=== PATIENT | female | born 1970 | race Caucasian/White ===

== ENCOUNTER → 2016-04-12 | Outpatient (CLI) | payer BC ==
[~2016-04-12] MED LIST: ACIDOPHILUS1 EAC4 PO; ADVIL200 MG PO; ASPIR-TRIN325 MG PO; ASPIRIN325 MG PO; NORCO 5-325 TA1 EACH PO; PERCOCET 5-3251 EACH PO; PROBIOTIC1 EAC1 PO; TYLENOL EXTRA500 MG PO; VITAMIN B-12500 MCG PO; VITAMIN B12-FO1 EACH PO; XARELTO15 MG PO
== END | disposition disaster alternative care site (69) ==
LOC: GCAR 10:42
DX: M25.571 Pain in right ankle and joints of right foot (principal); M79.661 Pain in right lower leg; M79.89 Other specified soft tissue disorders

== ENCOUNTER → 2016-07-11 | Day surgery (SDC) | payer BC ==
[~2016-07-11] VITALS: Ht 170.2 cm; Wt 122.4 kg
--- NOTE | ~2016-07-11 | OR ---
PATIENT'S NAME: JASPREET THOMAS [facility] AGE: 45 Y [address] ROOM: [place] [address] [place]: [facility] [place] ADMIT DATE: 07/11/2016 OR/Procedure Report DISCHARGE DATE: FAMILY PHYSICIAN: Rafa Lagos ATTENDING PHYSICIAN: JANI MARTÍNEZ SURGEON: Jani Martínez MD INSTALLATION DRAFTER: Martin Das PA-C. DATE OF PROCEDURE: 07/11/2016 PREOPERATIVE DIAGNOSIS: Left knee mechanical symptoms with medial meniscus tear in the setting of previous tibial plateau fracture and underwent open reduction and internal fixation in the past. POSTOPERATIVE DIAGNOSES: Left medial and lateral meniscus tears and loose body. PROCEDURES PERFORMED: 1. Left knee arthroscopy. 2. Partial medial and lateral meniscectomies with extensive debridement of hypertrophic fat pad and synovitis, chondroplasty in medial, lateral, and patellofemoral compartments. 3. Removal of loose body in lateral gutter. ANESTHESIA: General endotracheal anesthesia. FLUIDS: See anesthesia report. ESTIMATED BLOOD LOSS: Minimal. TOURNIQUET: Left proximal thigh at 300 mmHg. SPECIMEN: None. COMPLICATIONS: None. DISPOSITION: Stable in PACU. COUNT: All counts correct. INDICATIONS: Ms. Thomas is a pleasant 45-year-old, female, who underwent the noted procedures above. The risks, benefits, and alternatives pursuing a surgical intervention were discussed the patient in detail. I marked the patient's left lower extremity indicating the correct surgical site. Anesthesia was consulted for their perioperative evaluation of the patient. PATIENT'S NAME: JASPREET THOMAS [facility] AGE: 45 Y [address] ROOM: [place] [address] LOC[place]: [facility] [place] ADMIT DATE: 07/11/2016 OR/Procedure Report DISCHARGE DATE: FAMILY PHYSICIAN: Rafa Lagos ATTENDING PHYSICIAN: JANI MARTÍNEZ DESCRIPTION OF PROCEDURE: The patient was taken from the holding room to the operating room. A time-out was performed. General endotracheal anesthesia was administered. Ancef antibiotic was administered for perioperative prophylaxis. This was a latex-free room. The left lower extremity then prepped and draped in a sterile fashion. I turned my attention to the left knee. An Esmarch was used to exsanguinate the limb. The tourniquet inflated to 250 mmHg. I began within a lateral parapatellar portal. I introduced my camera and performed a diagnostic arthroscopy. Notably, there were advanced degenerative changes, especially in the medial patellofemoral compartments. There was a large loose body noted in the lateral gutter. The ACL and PCL were intact. There was extensive synovitis and hypertrophic fat pad. I introduced a medial parapatellar portal from my shaver. I performed an extensive synovectomy and debridement of hypertrophic fat pad in the anterior aspect of the knee. Notably, the knee been previously traumatized from the lateral tibial plateau fracture. Using arthroscopic biter identified and imaged the loose body in the lateral gutter. I subsequently removed it. The chondroplasty was performed effectively in all 3 compartments, but mostly in the medial patellofemoral compartments. 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 There are degenerative changes were grade 3 at the medial compartment and grade 3/4 in the patellofemoral compartments. All the fluid was then aspirated from the joint. The wound was closed with the arthroscopic portal stitches using a 2-0 nylon suture. Sterile dressings were placed in the form of Xeroform, followed by 4x4, Webril, and Michael wrap from the toes up to the proximal thigh. The tourniquet was let down. The patient was then transferred to operating table onto the stretcher and extubated. She was brought to the recovery room in stable condition. There were no intraoperative complications noted. Of note, my PA, Martin Das PA-C, played an integral role in the intraoperative care of this patient. This included preoperative positioning, intraoperative expert retraction, and closing and dressing functions. IMPRESSION: The patient is status post the noted procedure above. PLAN: The patient will be weightbearing as tolerated on the left lower PATIENT'S NAME: JASPREET THOMAS [facility] AGE: 45 Y [address] ROOM: [place] [address] [place]: [facility] [place]MIT DATE: 07/11/2016 OR/Procedure Report DISCHARGE DATE: FAMILY PHYSICIAN: Rafa Lagos ATTENDING PHYSICIAN: JANI MARTÍNEZ extremity. She will be encouraged to rest, ice, and elevate the extremity going forward. Postoperative pain control in the form of Percocet and aspirin for DVT prophylaxis. I will continue to monitor the patient closely postoperatively. She will follow up in my office in 2 weeks for first postoperative visit. MD DARIAN HILLIARD/zahra /[id number] d: 07/11/16 1012 t: 08/03/16 1340, OPERATIVE SUMMARY
== END | disposition disaster alternative care site (69) ==
LOC: GPOC 07-04 13:00 → GSDC 05:55
PROC: 0SBD4ZZ Excision of Left Knee Joint, Percutaneous Endoscopic Approach (ICD-10-PCS; principal; 2016-07-11)
PROC: 0SBD4ZZ Excision of Left Knee Joint, Percutaneous Endoscopic Approach (ICD-10-PCS; 2016-07-11)
PROC: 0SCD4ZZ Extirpation of Matter from Left Knee Joint, Percutaneous Endoscopic Approach (ICD-10-PCS; 2016-07-11)
DX: S83.282A Other tear of lateral meniscus, current injury, left knee, initial encounter (principal); S83.242A Other tear of medial meniscus, current injury, left knee, initial encounter; M23.42 Loose body in knee, left knee; M94.262 Chondromalacia, left knee
CPT/HCPCS: J0131; J0690; J1170; J3010; J7120

== ENCOUNTER → 2016-07-31 | Outpatient (CLI) | payer BC | END | disposition disaster alternative care site (69) | LOC: GRAD 14:47 | DX: M92.61 Juvenile osteochondrosis of tarsus, right ankle (principal); S90.01XA Contusion of right ankle, initial encounter; S93.491A Sprain of other ligament of right ankle, initial encounter; Z98.890 Other specified postprocedural states ==

== ENCOUNTER → 2016-08-01 | Day surgery (SDC) | payer BC ==
[~2016-08-01] VITALS: Ht 170.2 cm; Wt 117.8 kg
--- NOTE | ~2016-08-01 | OR ---
PATIENT'S NAME: JASPREET THOMAS [facility] AGE: 45 Y [address] ROOM: [place] [address] [place] [facility] [place]: 08/01/2016 OR/Procedure Report DISCHARGE DATE: FAMILY PHYSICIAN: Rafa Lagos ATTENDING PHYSICIAN: JANI MARTÍNEZ SURGEON: Jani Martínez MD VENDING MACHINE ATTENDANT: Martin Das PA-C. DATE OF PROCEDURE: 08/01/2016 PREOPERATIVE DIAGNOSIS: Right midsubstance Achilles rupture after previous surgical repair. POSTOPERATIVE DIAGNOSIS: Right midsubstance Achilles rupture after previous surgical repair. PROCEDURE: 1. Right revision Achilles reconstruction with gracilis hamstring allograft. 2. Transfer of flexor hallucis longus tendon to calcaneus. 3. Debridement of Achilles tendon. 4. Posterior compartment release. 5. Placement of short-leg splint intraoperatively with the ankle in relative plantar flexion. ANESTHESIA: General endotracheal anesthesia. FLUIDS: See Anesthesia report. ESTIMATED BLOOD LOSS: Minimal. TOURNIQUET: Right proximal thigh 250 mmHg. SPECIMEN: None. COMPLICATIONS: None. DISPOSITION: Stable in PACU. COUNTS: All counts were correct. IMPLANTS: An [employer] Bio-Tenodesis screw for FHL tendon transfer and FiberWire suture for Achilles reconstruction along with gracilis allograft tendon x2 for Achilles reconstruction. INDICATIONS: Ms. Thomas is a pleasant foot 45-year-old female who underwent the noted procedures above. The risks, benefits, and alternatives of pursuing PATIENT'S NAME: JASPREET THOMAS [facility] AGE: 45 Y [address] ROOM: [place] [address] [place] [facility] [place]: 08/01/2016 OR/Procedure Report DISCHARGE DATE: FAMILY PHYSICIAN: Rafa Lagos ATTENDING PHYSICIAN: JANI MARTÍNEZ surgical intervention were discussed with the patient in detail. She elected to proceed with surgery as noted above. Anesthesia was consulted for their perioperative evaluation of the patient. I marked the right lower extremity indicating the correct surgical site. DESCRIPTION OF PROCEDURE: The patient was taken from the holding area to the operating room. A time-out was performed. General endotracheal anesthesia was administered. The patient was then placed in the prone position. The right lower extremity then prepped and draped in a sterile fashion. I turned my attention to the right leg. An Esmarch was used to exsanguinate the limb. The tourniquet was inflated to 250 mmHg. Utilizing the previous surgical incision, the posterior aspect of the heel, I elongated it proximally. At that time, as the incision was carried down to the paratenon, I identified a hematoma in the midsubstance of the Achilles. The tendon was ruptured. I intraoperatively took a picture of this. There was some FiberWire that was still attached to the tendon itself was retracted proximally and fully disrupted. The wound was then copiously irrigated. The proximal portion and distal stump of the tendon were debrided back to viable tendon. There was a gap, however, that could not be bridged with a primary repair. I then performed a posterior compartment release to allow for easier mobilization of the soft tissues. I then identified the flexor hallucis longus tendon. With my PA plantar flexing the foot, I gained maximal excursion and then transected the flexor hallucis longus tendon in the tarsal tunnel. I then placed FiberWire around it. I then subsequently placed a Beath pin into the calcaneus next to the stump, just anterior to the stump of the distal Achilles tendon. I placed a Beath pin through the heel. I then over drilled with an [place] reamer and then placed the tendon into the hole. With my PA plantar flexing the foot and placing traction on the FHL tendon in the tunnel, I placed my Bio-Tenodesis screw. I achieved excellent fixation. This helped maintain the foot in a plantar flexed position. There was good tension across the FHL tendon. Using my 2 gracilis tendons, I performed a 2 limb repair using a Pulver[place] weave technique and FiberWire suture to secure both limbs of the gracilis tendon to the proximal and distal tendon stumps. I replicated the attention already established by the FHL tendon transfer. I achieved successful bridging of the gap at the Achilles with reconstruction. A squeeze test at the calf elicited plantar flexion movement to the foot. The wound was then copiously irrigated with a normal sterile saline solution. PATIENT'S NAME: JASPREET THOMAS [facility] AGE: 45 Y [address] ROOM: [place] [address] [place] [facility] [place]: 08/01/2016 OR/Procedure Report DISCHARGE DATE: FAMILY PHYSICIAN: Rafa Lagos ATTENDING PHYSICIAN: JANI MARTÍNEZ The Achilles was then closed in layers using 2-0 Vicryl suture and 2-0 nylon suture to subsequently approximate the skin. After the wound was closed, a sterile dressing was placed in the form of Xeroform, followed by 4x4, Webril, and Michael. The patient was then placed into a well-padded short-leg splint with the ankle in relative plantar flexion. The patient was then transferred from the operating table onto the stretcher in a supine position. She was extubated and brought to the recovery room in stable condition. There were no intraoperative complications noted. Of note, my PA, Martin Das PA-C, played an integral role in the intraoperative care of this patient. This included preoperative positioning, intraoperative expert retraction, and closing and splinting functions. IMPRESSION: The patient is status post the noted procedures above. PLAN: The patient will be nonweightbearing on the right lower extremity. She will be encouraged to rest, ice, and elevate the extremity going forward. She will restart her Xarelto on postoperative day 2. Postoperative pain control will be in the form of Percocet. A peripheral nerve block was deferred as the patient just recently came off her Xarelto in the last 48 hours. I would like to see the patient back in my office in 2 weeks for first postoperative visit. MD DARIAN HILLIARD/zahra /[id number] d: 08/01/16 1858 t: 08/02/16 0740, OPERATIVE SUMMARY
== END | disposition disaster alternative care site (69) ==
LOC: GPOC 07-31 11:00 → GSDC 06:02
PROC: 0LQN0ZZ Repair Right Lower Leg Tendon, Open Approach (ICD-10-PCS; principal; 2016-08-01)
PROC: 0LXV0ZZ Transfer Right Foot Tendon, Open Approach (ICD-10-PCS; 2016-08-01)
PROC: 0KNV0ZZ Release Right Foot Muscle, Open Approach (ICD-10-PCS; 2016-08-01)
DX: S86.011A Strain of right Achilles tendon, initial encounter (principal); F17.210 Nicotine dependence, cigarettes, uncomplicated; Z91.040 Latex allergy status; W19.XXXD Unspecified fall, subsequent encounter; Z90.49 Acquired absence of other specified parts of digestive tract; Z98.890 Other specified postprocedural states; Z79.899 Other long term (current) drug therapy
CPT/HCPCS: C1713; J0690; J1100; J2250; J2405; J3010; J7120